=== PATIENT | female | born 1975 | race Caucasian/White ===

== ENCOUNTER 2019-06-06 12:15 | Emergency (ER) | payer OTHER ==
[2019-06-06 12:30] VITALS: BP 110/80
--- NOTE | 2019-06-06 13:42 | UC ---
Skin Complaint HPI - HPI Summary HPI Summary: 43 y/o female presents to the urgent care c/o pt states 10 days ago she thinks she was bit by a spider. pt states she is ot for sure it was a spider but was outside camping with friends. lt lower leg is red swollen and painful. - History of Current Complaint Chief Complaint: UCSkin Time Seen by Provider: 06/06/19 13:39 Stated Complaint: SKIN COMPLAINT Hx Obtained From: Patient Hx Last Menstrual Period: 09/05/17 Pain Intensity: 6 - Allergy/Home Medications Allergies/Adverse Reactions: Allergies Allergy/AdvReac Type Severity Reaction Status Date / Time Sulfa (Sulfonamide Allergy Rash Verified 06/06/19 12:30 Antibiotics) PMH/Surg Hx/FS Hx/Imm Hx - Surgical History Surgical History: None - Family History Known Family History: Positive: Other - parkinsons - Social History Alcohol Use: Occasionally Substance Use Type: None Smoking Status (MU): Never Smoked Tobacco Physical Exam Vital Signs: Initial Vital Signs Temp 98.3 F 06/06/19 12:23 Pulse 87 06/06/19 12:23 Resp 18 06/06/19 12:23 BP 110/80 06/06/19 12:23 Pulse Ox 100 06/06/19 12:23 Course/Dx - Differential Diagnoses - Skin Complaint Differential Diagnoses: Abscess, Cellulitis, Contact Dermatitis, Local Allergic Reaction, MRSA, Tick Born Illness, Urticaria - Diagnoses Provider Diagnosis: Cellulitis of left lower leg Discharge - Sign-Out/Discharge Documenting (check all that apply): Patient Departure - d/C home All imaging exams completed and their final reports reviewed: No Studies - Discharge Plan Condition: Stable Disposition: HOME Prescriptions: Cephalexin CAP* [Keflex CAP*] 500 mg PO QID #28 cap Ibuprofen TAB* [Motrin TAB* 800 MG] 800 mg PO Q6H PRN #30 tab PRN Reason: Pain Patient Education Materials: Cellulitis (ED) Forms: *Work Release Referrals: Danielle Falcon MD [Primary Care Provider] - 2 Days Additional Instructions: 1-Please take full course of Antibiotic. Please take yogurts w/ probiotics or culturelle to protect your GI system 2-If redness and swelling doubles in size beyond what was demarcated after 48 hrs of taking antibiotic and fever develops please go to the ER immediately. 3-Avoid standing for long periods of time or flexing your leg or foot, keep it elevated , apply cold compresses 4-Please F/u with your PCP in 2 days if not improvement of symptoms for further evaluation and treatment. - Billing Disposition and Condition Condition: STABLE Disposition: Home
== END 2019-06-06 14:10 | disposition home or self-care (01) ==
LOC: UCEAST 12:15
DX: L03.116 Cellulitis of left lower limb (principal); Z88.2 Allergy status to sulfonamides
CPT/HCPCS: 99212; G0463

== ENCOUNTER 2021-10-20 12:10 | Inpatient (IN) ==
[2021-10-20 14:21] LABS: ABS Basophils 0.1 10^3/ul (0-0.2); ABS Eosinophils 0.4 10^3/ul (0-0.6); ABS Lymphocytes 1.7 10^3/ul (1.0-4.8); ABS Monocytes 0.6 10^3/ul (0-0.8); ABS Neutrophils 5.2 10^3/ul (1.5-7.7); Hematocrit 32 % (35-47); Lymphocyte % 21.4 %; Mean Corpuscular HGB Conc 34 g/dL (31-36); Mean Corpuscular Hemoglobin 30 pg (27-31); Mean Corpuscular Volume 88 fL (80-97); Mean Platelet Volume 7.3 fL (7.4-10.4); Platelet Count 342 10^3/uL (150-450); Red Blood Count 3.64 10^6 /uL (3.70-4.87); Red Cell Distribution Width 17 % (10-15); White Blood Count 7.9 10^3/uL (3.5-10.8)
[2021-10-20 14:31] LABS: INR 1.31 (0.86-1.15)
[2021-10-20] MEDS ORDERED: Lactated Ringers 1000 ml BAG 1,000 ML IV ONE (14:54)
[2021-10-20 15:03] LABS: Albumin 3.9 g/dL (3.2-5.2); Albumin/Globulin Ratio 0.8 (1-3); Calcium 9.3 mg/dL (8.6-10.3); Globulin 4.6 g/dL (2-4); Potassium 3.6 mmol/L (3.5-5.0); Total Bilirubin 0.3 mg/dL (0.2-1.0); Total Protein 8.5 g/dL (6.4-8.9); eGFR CKD-EPI 2.4 (>60)
[2021-10-20 15:55] LABS: Calcium 9.1 mg/dL (8.6-10.3); Potassium 3.6 mmol/L (3.5-5.0); eGFR CKD-EPI 2.3 (>60)
[2021-10-20] MEDS ORDERED: Potassium Chlor 20 meq TAB.ER PO ONE (15:56)
[2021-10-20 16:19] LABS: PO2 Arterial 147 mmHg (80-100)
[2021-10-20 16:29] LABS: PCO2 Arterial <20 mmHg (35-45)
[2021-10-20] MEDS ORDERED: Sodium Bicarbonate 8.4% IV 150 MEQ in D5W 1000 ML BAG 850 ML IV ONE (16:30)
[2021-10-20] MEDS ORDERED: Sodium Bicarb 8.4% Vial 50 ML 150 MEQ in D5W 1000 ml BAG 850 ML IV SCH (18:00)
[2021-10-20 19:03] LABS: Rapid COVID-19 Molecular Undetected (Undetected)
[2021-10-20] MEDS: Metoclopramide 5 MG/ML VIAL (10 mg) IV PRN (20:31)
[2021-10-20 21:16] LABS: Venous Bicarbonate HCO3 11.8 mmol/L (24-28)
[2021-10-20 21:19] LABS: Urine Appearance Cloudy; Urine Bilirubin Negative (Negative); Urine Blood 1+ (Negative); Urine Color Yellow; Urine Glucose 1+(50 mg/dL) (Negative); Urine Ketones Trace (Negative); Urine Nitrite Negative (Negative); Urine Protein 2+(100 mg/dL) (Negative); Urine Specific Gravity 1.012 (1.002-1.030); Urine Urobilinogen Negative (Negative)
[2021-10-20 21:21] LABS: Urine Bacteria 1+ (Absent); Urine Red Blood Cell 2+(6-10/hpf) (Absent); Urine Squamous Epithelial Cell Present (Absent); Urine White Blood Cell 2+(11-20/hpf) (Absent)
[2021-10-20 21:35] LABS: Albumin 3.6 g/dL (3.2-5.2); Albumin/Globulin Ratio 0.9 (1-3); Calcium 8.8 mg/dL (8.6-10.3); Potassium 3.5 mmol/L (3.5-5.0); Total Bilirubin 0.3 mg/dL (0.2-1.0); Total Protein 7.6 g/dL (6.4-8.9); eGFR CKD-EPI 2.4 (>60)
[2021-10-20 21:53] LABS: Urine Benzodiazepine Screen None Detected (None Detect); Urine Cannabinoids Screen None Detected (None Detect); Urine Opiates Screen None Detected (None Detect)
[2021-10-20 22:12] LABS: Osmolality Serum 338 mOsm/kg (275-295)
[2021-10-21 00:34] LABS: Calcium 8.4 mg/dL (8.6-10.3); eGFR CKD-EPI 2.5 (>60)
[2021-10-21] MEDS: KCL 20 MEQ/100 ML IVPREMIX 20 MEQ/100 ML BAG IV SCH ×2 (00:50→05:36)
[2021-10-21] MEDS ORDERED: Sodium Bicarb 8.4% Vial 50 ML 150 MEQ in D5W 1000 ml BAG 1,000 ML IV SCH (01:00)
[2021-10-21 05:25] LABS: INR 1.35 (0.86-1.15)
[2021-10-21 05:39] LABS: Anion Gap 24 mmol/L (2-11); CO2 Carbon Dioxide 15 mmol/L (22-32); Calcium 8.1 mg/dL (8.6-10.3); Chloride 98 mmol/L (101-111); Glucose 113 mg/dL (70-100); Sodium 137 mmol/L (135-145); eGFR CKD-EPI 2.6 (>60)
[2021-10-21] MEDS: Metoclopramide 5 MG/ML VIAL (10 mg) IV PRN ×2 (05:52→22:07)
[2021-10-21 05:59] LABS: Blood Urea Nitrogen 139 mg/dL (6-24)
[2021-10-21 06:24] LABS: ABS Basophils 0.1 10^3/ul (0-0.2); ABS Eosinophils 0.3 10^3/ul (0-0.6); ABS Lymphocytes 1.5 10^3/ul (1.0-4.8); ABS Monocytes 0.7 10^3/ul (0-0.8); ABS Neutrophils 3.6 10^3/ul (1.5-7.7); Eosinophil % 5.5 %; Hematocrit 25 % (35-47); Hemoglobin 8.8 g/dL (12.0-16.0); Lymphocyte % 23.6 %; Mean Corpuscular HGB Conc 35 g/dL (31-36); Mean Corpuscular Hemoglobin 30 pg (27-31); Mean Corpuscular Volume 86 fL (80-97); Mean Platelet Volume 7.7 fL (7.4-10.4); Nucleated Red Blood Cells % 0.1; Platelet Count 295 10^3/uL (150-450); Red Cell Distribution Width 16 % (10-15); White Blood Count 6.2 10^3/uL (3.5-10.8)
[2021-10-21] MEDS ORDERED: KCL 20 MEQ/100 ML IVPREMIX 20 MEQ/100 ML BAG IV ONE ×3 (07:15→15:14)
[2021-10-21] MEDS ORDERED: Lidocaine 1% VIAL 10 MG/ML VIAL ONE (08:03)
[2021-10-21 08:05] LABS: Magnesium 1.3 mg/dL (1.9-2.7); Phosphorus 6.5 mg/dL (2.5-5.0)
[2021-10-21] MEDS ORDERED: Midazolam 2 mg/2 ml VIAL 1 mg/ml 2 ml VIAL (2 mg) ONE (08:11)
[2021-10-21] MEDS ORDERED: Calcium Citrate 200 mg TAB PO ONE (08:30)
[2021-10-21] MEDS ORDERED: Magnesium Sulfate 2 gm BAG 2 GM/50 ML BAG IVPB ONE (08:38)
[2021-10-21 09:02] LABS: ALT 80 U/L (7-52); AST 57 U/L (13-39); Albumin 3.1 g/dL (3.2-5.2); Albumin/Globulin Ratio 0.9 (1-3); Alkaline Phosphatase 191 U/L (35-149); Globulin 3.6 g/dL (2-4); Total Protein 6.7 g/dL (6.4-8.9)
[2021-10-21] MEDS ORDERED: Midazolam 2 mg/2 ml VIAL 1 mg/ml 2 ml VIAL (2 mg) IV SLOW PU ONE ×2 (09:16→13:32)
[2021-10-21] MEDS: Heparin 1,000 UNIT/ML 10 ml (10,000 UNITS) CATHLAB/DIALYSIS DIALYSIS ONE ×4 (09:35→11:50)
[2021-10-21 10:09] LABS: Calcium 7.4 mg/dL (8.6-10.3)
[2021-10-21 10:15] LABS: eGFR CKD-EPI 2.8 (>60)
[2021-10-21 11:19] LABS: Hepatitis B Surface Ab Not Immune (Immune)
[2021-10-21] MEDS ORDERED: Desmopressin Acetate 30 MCG in NS 0.9% 50 ML 50 ML IVPB ONE (11:30)
[2021-10-21 11:39] LABS: Hepatitis B Surface Antigen Nonreactive (Nonreactive)
[2021-10-21] MEDS ORDERED: Ondansetron 4 mg VIAL 2 MG/ML 2 ml VIAL ONE (11:45)
[2021-10-21] MEDS ORDERED: fentaNYL 100 mcg/2 ml 50 MCG/ML VIAL ONE (11:56)
[2021-10-21] MEDS ORDERED: Ondansetron 4 mg VIAL 2 MG/ML 2 ml VIAL IV ONE (12:47)
[2021-10-21 14:18] LABS: Calcium 8.1 mg/dL (8.6-10.3); Potassium 2.8 mmol/L (3.5-5.0); eGFR CKD-EPI 6.2 (>60)
[2021-10-21] MEDS ORDERED: NS 0.9% 1000 ml BAG 1,000 ML IV SCH (14:30)
[2021-10-21] MEDS ORDERED: Lidocaine 1% MPF 2 ML VIAL INJ ONE (14:38)
[2021-10-21] MEDS: Lactated Ringers 1000 ml BAG 1,000 ML IV SCH ×2 (16:27→17:20)
[2021-10-21 16:50] LABS: % Iron Saturation 55 % (15-55); Iron 92 ug/dL (50-212); Total Iron Binding Capacity 168 mcg/dL (250-450); Transferrin 120 mg/dL (203-362); Unsaturated Iron Binding < 153 ug/dL
[2021-10-21 17:37] LABS: Ferritin 587.1 ng/mL (11-307)
[2021-10-21 17:41] LABS: Folate 4.39 ng/mL (5.90-24.80)
[2021-10-21 17:42] LABS: Vitamin B12 814 pg/mL (180-914)
[2021-10-21 22:33] LABS: Calcium 8.2 mg/dL (8.6-10.3); Potassium 3.4 mmol/L (3.5-5.0); eGFR CKD-EPI 5.9 (>60)
[2021-10-22 00:04] LABS: Hepatitis A Ab IgM Negative (Negative)
[2021-10-22 06:02] LABS: Hematocrit 23 % (35-47); Hemoglobin 7.9 g/dL (12.0-16.0); Mean Corpuscular HGB Conc 35 g/dL (31-36); Mean Corpuscular Hemoglobin 30 pg (27-31); Mean Corpuscular Volume 86 fL (80-97); Mean Platelet Volume 7.7 fL (7.4-10.4); Platelet Count 263 10^3/uL (150-450); Red Blood Count 2.63 10^6 /uL (3.70-4.87); Red Cell Distribution Width 17 % (10-15); White Blood Count 5.9 10^3/uL (3.5-10.8)
[2021-10-22 06:10] LABS: INR 1.38 (0.86-1.15)
[2021-10-22 06:19] LABS: Albumin/Globulin Ratio 0.9 (1-3); Calcium 8.4 mg/dL (8.6-10.3); Globulin 3.4 g/dL (2-4); Magnesium 1.8 mg/dL (1.9-2.7); Phosphorus 4.8 mg/dL (2.5-5.0); Potassium 3.3 mmol/L (3.5-5.0); Total Bilirubin 0.3 mg/dL (0.2-1.0); Total Protein 6.4 g/dL (6.4-8.9); eGFR CKD-EPI 5.6 (>60)
[2021-10-22] MEDS ORDERED: Magnesium Sulfate IV 3 GM in NS 0.9% 100 ml BAG 100 ML IVPB ONE (07:53)
[2021-10-22] MEDS ORDERED: Heparin 1,000 UNIT/ML 10 ml (10,000 UNITS) CATHLAB/DIALYSIS DIALYSIS ONE (09:00)
[2021-10-22] MEDS: Heparin 1,000 UNIT/ML 10 ml (10,000 UNITS) CATHLAB/DIALYSIS DIALYSIS ONE ×4 (09:48→11:37)
[2021-10-22] MEDS: Metoclopramide 5 MG/ML VIAL (10 mg) IV PRN (09:51)
[2021-10-22] MEDS: Potassium Chloride LIQUID 20 MEQ/15 ML LIQUID PO ONE ×2 (12:22→13:45)
[2021-10-22] MEDS ORDERED: Potassium Chlor 20 meq TAB.ER PO ONE (13:24)
[2021-10-22 18:43] LABS: Calcium 8.8 mg/dL (8.6-10.3); Magnesium 3.1 mg/dL (1.9-2.7); Potassium 3.9 mmol/L (3.5-5.0); eGFR CKD-EPI 14.3 (>60)
[2021-10-23 06:19] LABS: ABS Eosinophils 0.2 10^3/ul (0-0.6); ABS Lymphocytes 1.7 10^3/ul (1.0-4.8); ABS Monocytes 0.6 10^3/ul (0-0.8); ABS Neutrophils 3.3 10^3/ul (1.5-7.7); Eosinophil % 3.7 %; Hematocrit 25 % (35-47); Hemoglobin 8.6 g/dL (12.0-16.0); Lymphocyte % 28.9 %; Mean Corpuscular HGB Conc 34 g/dL (31-36); Mean Corpuscular Hemoglobin 30 pg (27-31); Mean Corpuscular Volume 87 fL (80-97); Mean Platelet Volume 7.8 fL (7.4-10.4); Nucleated Red Blood Cells % 0.1; Platelet Count 289 10^3/uL (150-450); Red Blood Count 2.89 10^6 /uL (3.70-4.87); Red Cell Distribution Width 17 % (10-15); White Blood Count 5.8 10^3/uL (3.5-10.8)
[2021-10-23 06:43] LABS: Calcium 8.7 mg/dL (8.6-10.3); Potassium 3.7 mmol/L (3.5-5.0)
[2021-10-23 06:48] LABS: eGFR CKD-EPI 10.8 (>60)
[2021-10-23] MEDS: Heparin 1,000 UNIT/ML 10 ml (10,000 UNITS) CATHLAB/DIALYSIS DIALYSIS ONE ×4 (09:08→11:57)
[2021-10-23 10:53] LABS: Albumin 2.7 g/dL (3.4-4.7); Albumin/Globulin Ratio 0.75; Gamma Globulin 1.5 g/dL (0.6-1.6); Total Protein(PEP) 6.3 g/dL (6.3 - 7.9)
[2021-10-23 12:31] LABS: Cryoglobulin Negative %ppt (Negative)
[2021-10-23 14:21] LABS: Sm (Smith) IgG Antibody <0.2 U
[2021-10-23 17:03] LABS: Case Number KR-21-6372
[2021-10-24 10:27] LABS: Calcium 8.9 mg/dL (8.6-10.3); Magnesium 2.2 mg/dL (1.9-2.7); Potassium 3.3 mmol/L (3.5-5.0); eGFR CKD-EPI 12.5 (>60)
[2021-10-24] MEDS ORDERED: Potassium Chlor 20 meq TAB.ER PO ONE (13:51)
[2021-10-24] MEDS ORDERED: Sodium Phosphate IV 15 MMOLE in NS 0.9% 250 ml 250 ML IV ONE (13:54)
[2021-10-24] MEDS: Heparin 5000 UNITS/ML 1 mL VIAL SUBCUT SCH ×2 (14:50→21:35)
[2021-10-25] MEDS: Heparin 5000 UNITS/ML 1 mL VIAL SUBCUT SCH ×3 (06:07→21:15)
[2021-10-25 06:30] LABS: Calcium 9.2 mg/dL (8.6-10.3); Phosphorus 4.8 mg/dL (2.5-5.0); Potassium 3.7 mmol/L (3.5-5.0); eGFR CKD-EPI 8.8 (>60)
[2021-10-26] MEDS: Heparin 5000 UNITS/ML 1 mL VIAL SUBCUT SCH ×3 (06:19→21:46)
[2021-10-26 08:29] LABS: Calcium 9.3 mg/dL (8.6-10.3); Magnesium 1.9 mg/dL (1.9-2.7); Phosphorus 5.3 mg/dL (2.5-5.0); Potassium 3.6 mmol/L (3.5-5.0); eGFR CKD-EPI 6.8 (>60)
[2021-10-26] MEDS: Heparin 1,000 UNIT/ML 10 ml (10,000 UNITS) CATHLAB/DIALYSIS DIALYSIS PRN ×3 (09:00→11:12)
[2021-10-26 12:01] LABS: Albumin 29.6 mg/dL; Gamma Globulin 15.3 mg/dL; Protein,Total, Random Urine 102 mg/dL
[2021-10-26] MEDS ORDERED: Senna TAB 8.6 mg TAB PO PRN (14:01)
[2021-10-27] MEDS: Heparin 5000 UNITS/ML 1 mL VIAL SUBCUT SCH ×3 (05:59→21:29)
[2021-10-27 06:11] LABS: Calcium 9.3 mg/dL (8.6-10.3); Magnesium 1.9 mg/dL (1.9-2.7); Phosphorus 4.6 mg/dL (2.5-5.0); Potassium 3.9 mmol/L (3.5-5.0)
[2021-10-27] MEDS ORDERED: Clindamycin 600 MG/D5W BAG IV ONE (12:00)
[2021-10-27] MEDS ORDERED: Lidocaine 1% VIAL 10 MG/ML VIAL ONE (13:46)
[2021-10-27] MEDS ORDERED: fentaNYL 100 mcg/2 ml 50 MCG/ML VIAL ONE (14:00)
[2021-10-27] MEDS ORDERED: Midazolam 5 mg/5 ml VIAL 1 mg/ml 5 ml VIAL (5 mg) ONE (14:00)
[2021-10-27] MEDS ORDERED: Heparin 5000 UNITS/ML 1 mL VIAL ONE (14:39)
[2021-10-28 05:46] LABS: ABS Basophils 0.1 10^3/ul (0-0.2); ABS Eosinophils 0.3 10^3/ul (0-0.6); ABS Lymphocytes 1.5 10^3/ul (1.0-4.8); ABS Monocytes 0.6 10^3/ul (0-0.8); ABS Neutrophils 4.1 10^3/ul (1.5-7.7); Eosinophil % 4.7 %; Hematocrit 26 % (35-47); Hemoglobin 8.7 g/dL (12.0-16.0); Lymphocyte % 22.4 %; Mean Corpuscular HGB Conc 33 g/dL (31-36); Mean Corpuscular Hemoglobin 30 pg (27-31); Mean Corpuscular Volume 90 fL (80-97); Mean Platelet Volume 7.3 fL (7.4-10.4); Platelet Count 284 10^3/uL (150-450); Red Blood Count 2.91 10^6 /uL (3.70-4.87); Red Cell Distribution Width 16 % (10-15); White Blood Count 6.6 10^3/uL (3.5-10.8)
[2021-10-28 06:03] LABS: Calcium 9.5 mg/dL (8.6-10.3); Magnesium 1.8 mg/dL (1.9-2.7); Phosphorus 6.3 mg/dL (2.5-5.0); Potassium 4.2 mmol/L (3.5-5.0); eGFR CKD-EPI 7.6 (>60)
[2021-10-28] MEDS: Heparin 5000 UNITS/ML 1 mL VIAL SUBCUT SCH ×3 (06:03→21:02)
[2021-10-28] MEDS: Heparin 1,000 UNIT/ML 10 ml (10,000 UNITS) CATHLAB/DIALYSIS DIALYSIS PRN ×2 (09:00→10:00)
[2021-10-28] MEDS: Senna TAB 8.6 mg TAB PO SCH (16:03)
[2021-10-28] MEDS ORDERED: Magnesium Sulfate IV 1GM/100ML 1 GM/100 ML BAG IV ONE (16:49)
[2021-10-29] MEDS: Heparin 5000 UNITS/ML 1 mL VIAL SUBCUT SCH ×3 (06:03→22:57)
[2021-10-29 06:50] LABS: Calcium 9.3 mg/dL (8.6-10.3); Magnesium 2.3 mg/dL (1.9-2.7); Potassium 4.4 mmol/L (3.5-5.0); eGFR CKD-EPI 7.6 (>60)
[2021-10-29] MEDS: Senna TAB 8.6 mg TAB PO SCH (07:39)
[2021-10-29] MEDS: Magnesium Hydroxide LIQ 30 ML UDC PO PRN (07:40)
[2021-10-29] MEDS ORDERED: Clindamycin 600 MG/D5W BAG 600 MG/50 ML BAG IV ONE (13:01)
[2021-10-29] MEDS ORDERED: Midazolam 5 mg/5 ml VIAL 1 mg/ml 5 ml VIAL (5 mg) ONE (14:37)
[2021-10-29] MEDS ORDERED: fentaNYL 100 mcg/2 ml 50 MCG/ML VIAL ONE (14:37)
[2021-10-29] MEDS ORDERED: Heparin 5000 UNITS/ML 1 mL VIAL ONE (14:44)
[2021-10-29] MEDS ORDERED: Lidocaine 1% VIAL 10 MG/ML VIAL ONE (14:45)
[2021-10-29] MEDS ORDERED: Heparin 2 UNITS/ML IVPREMIX 1,000 UNIT/500 ML BAG IV ONE (14:46)
[2021-10-30 05:13] LABS: Calcium 9.4 mg/dL (8.6-10.3); Magnesium 2.3 mg/dL (1.9-2.7); Phosphorus 7.1 mg/dL (2.5-5.0); Potassium 4.1 mmol/L (3.5-5.0); eGFR CKD-EPI 7.6 (>60)
[2021-10-30] MEDS: Heparin 5000 UNITS/ML 1 mL VIAL SUBCUT SCH ×3 (06:23→21:59)
[2021-10-30] MEDS: Senna TAB 8.6 mg TAB PO SCH (07:53)
[2021-10-30] MEDS: Heparin 1,000 UNIT/ML 10 ml (10,000 UNITS) CATHLAB/DIALYSIS DIALYSIS PRN ×4 (08:41→12:17)
[2021-10-30] MEDS: Magnesium Hydroxide LIQ 30 ML UDC PO PRN (22:05)
[2021-10-31] MEDS: Heparin 5000 UNITS/ML 1 mL VIAL SUBCUT SCH ×3 (05:07→22:06)
[2021-10-31] MEDS: Magnesium Hydroxide LIQ 30 ML UDC PO PRN (08:10)
[2021-10-31] MEDS: Senna TAB 8.6 mg TAB PO SCH (08:10)
[2021-10-31] MEDS ORDERED: PPD test dose 5 TU/0.1 ML TEST (*USE PPD ORDER SET*) INTRADERM SCH (13:00)
[2021-10-31] MEDS ORDERED: Tuberculin PPD* 5 TU/DOSE/0.1 ML INTRADERM ONE (13:00)
[2021-11-01] MEDS: Heparin 5000 UNITS/ML 1 mL VIAL SUBCUT SCH ×3 (05:35→22:13)
[2021-11-01] MEDS: Senna TAB 8.6 mg TAB PO SCH (08:24)
[2021-11-02] MEDS: Heparin 5000 UNITS/ML 1 mL VIAL SUBCUT SCH ×2 (05:38→13:45)
[2021-11-02] MEDS ORDERED: PPD Reading 48-72 HRS NOTE SCH (06:00)
[2021-11-02] MEDS: Heparin 1,000 UNIT/ML 10 ml (10,000 UNITS) CATHLAB/DIALYSIS DIALYSIS PRN ×4 (08:47→12:49)
[2021-11-02] MEDS: Senna TAB 8.6 mg TAB PO SCH (13:46)
[2021-11-02 14:40] VITALS: BP 118/84
== END 2021-11-02 18:57 | disposition home or self-care (01) | DRG 469 ==
LOC: ED 12:10 → SUATTDRO 17:07 → EDHOLD 17:07 → ICU 19:57 → MED 10-21 17:11
PROVIDERS: ADMIT Internal Medicine; ATTEND Hospitalist